=== PATIENT | female | born 1960 | race Caucasian/White ===

== ENCOUNTER 2016-10-09 10:26 | Inpatient (IN) | payer BC ==
[~2016-10-09] VITALS: Ht 175.3 cm; Wt 101.5 kg
[~2016-10-09 10:26] MED LIST: ACYC-114 PO; BACITRACIN 50,000 UNIT ONE; BUPR-86 PO; EPINEPHRINE 1 MG/ML, 1ML ONE; FLUO40CA9 PO; HYDR-3144 PO; KETOROLAC 60 MG/2 ML ONE; LACT1CAP35 PO; LOPE2CAP94 PO; OMEP40CA6 PO; PHEN1CPM PO; ROPIvacaine/PF 0.2%, 20 ML ONE; SODIUM CHLORIDE 0.9% 0 ML ONE; TRANEXAMIC ACID 100 MG/ML, 10ML ONE; morphine SULFATE/PF 1 MG/ML, 10ML ONE
[2016-10-09] MEDS ORDERED: VANCOMYCIN PMX 1GM/200ML 200 ML IV STA (10:47)
[2016-10-09] MEDS ORDERED: LACTATED RINGERS 1,000 ML IV SCH (10:51)
[2016-10-09 11:14] VITALS: BP 131/80
[2016-10-09] MEDS ORDERED: FENTANYL PF 100 MCG/2ML ONE (11:25)
[2016-10-09] MEDS ORDERED: MIDAZOLAM 1 MG/ML, 2ML ONE (11:25)
[2016-10-09] MEDS ORDERED: GLYCOPYRROLATE 0.2MG/1ML ONE (11:51)
[2016-10-09] MEDS ORDERED: ATROPINE 0.4 MG/ML, 1ML ONE (11:51)
[2016-10-09] MEDS ORDERED: ESMOLOL 100 MG/10 ML ONE (11:51)
[2016-10-09] MEDS ORDERED: PROPOFOL 10 MG/ML, 50ML ONE (11:51)
[2016-10-09] MEDS ORDERED: CEFAZOLIN 1,000 MG ONE (11:51)
[2016-10-09] MEDS ORDERED: D5%-0.45% NACL 1,000 ML IV SCH (12:06)
[2016-10-09] MEDS ORDERED: CEFAZOLIN PMX 1GM/50ML 50 ML IVPB SCH (12:30)
[2016-10-09] MEDS ORDERED: OXYcodone/APAP 7.5/325MG TABLET PO PRN (12:30)
[2016-10-09] MEDS ORDERED: DIPHENHYDRAMINE 50 MG CAPSULE PO PRN (12:30)
[2016-10-09] MEDS ORDERED: ONDANSETRON 2MG/ML, 2ML IVPush PRN (12:30)
[2016-10-09] MEDS ORDERED: morphine SULFATE 10 MG/ML, 1ML IVPush PRN (12:30)
[2016-10-09] MEDS ORDERED: VANCOMYCIN PMX 1GM/200ML 200 ML IVPB ONE (12:30)
[2016-10-09] MEDS ORDERED: LORazepam 2 MG/ML, 1ML IVPush PRN (12:30)
[2016-10-09] MEDS ORDERED: ACETAMINOPHEN 325 MG TABLET PO PRN (12:30)
[2016-10-09] MEDS ORDERED: ZOLPIDEM 5MG TABLET PO PRN (12:30)
[2016-10-09] MEDS ORDERED: TRANEXAMIC ACID 100 MG/ML, 10ML IVPB ONE (12:30)
[2016-10-10] MEDS ORDERED: ASPIRIN 325 MG TABLET EC PO SCH (17:00)
[2016-10-10] MEDS ORDERED: DOCUSATE 100 MG CAPSULE PO SCH (21:00)
== END 2016-10-09 16:10 | disposition home or self-care (01) | DRG 554 ==
LOC: ORIP 10:26
PROVIDERS: ADMIT Orthopaedic Surgery; ATTEND Orthopaedic Surgery
DX: M16.11 Unilateral primary osteoarthritis, right hip (principal); K21.9 Gastro-esophageal reflux disease without esophagitis; R00.1 Bradycardia, unspecified; Z53.09 Procedure and treatment not carried out because of other contraindication; F32.9 Major depressive disorder, single episode, unspecified; Z87.891 Personal history of nicotine dependence; Z79.899 Other long term (current) drug therapy
CPT/HCPCS: 36415; 71010; 80047; 83735; 85025; 86850; 86900; 93005; J0171; J0461; J0690; J1885; J2250; J2274; J2704; J2795; J3010; J3370; J3490; J7120

== ENCOUNTER → 2016-11-16 | Outpatient (CLI) | payer BC ==
[~2016-11-16] MED LIST changes: -BACITRACIN 50,000 UNIT ONE; -EPINEPHRINE 1 MG/ML, 1ML ONE; -KETOROLAC 60 MG/2 ML ONE; +OMEG1CAP6 PO; -ROPIvacaine/PF 0.2%, 20 ML ONE; -SODIUM CHLORIDE 0.9% 0 ML ONE; -TRANEXAMIC ACID 100 MG/ML, 10ML ONE; -morphine SULFATE/PF 1 MG/ML, 10ML ONE
[2016-11-16 15:08] LABS: ASPARTATE AMINO TRANSFERASE 32 U/L (15-37); BLOOD UREA NITROGEN 15 mg/dL (7-18)
[2016-11-16 15:14] LABS: PATH.CAST-FLAG NOT PRESENT; SPERM-FLAG NOT PRESENT; SRC-FLAG NOT PRESENT; XTAL-FLAG NOT PRESENT; YLC-FLAG NOT PRESENT
== END | disposition home or self-care (01) ==
LOC: STAR 13:35
PROVIDERS: ATTEND Orthopaedic Surgery
DX: Z01.812 Encounter for preprocedural laboratory examination (principal); M16.11 Unilateral primary osteoarthritis, right hip
CPT/HCPCS: 36415; 80053; 81001; 85025; 87081; 87086

== ENCOUNTER 2016-11-27 07:20 | Inpatient (IN) | payer BC ==
[~2016-11-27] VITALS: Ht 177.8 cm; Wt 100.5 kg
[~2016-11-27 07:20] MED LIST changes: +BACITRACIN 50,000 UNIT ONE; +EPINEPHRINE 1 MG/ML, 1ML ONE; +KETOROLAC 60 MG/2 ML ONE; +ROPIvacaine/PF 0.2%, 20 ML ONE; +TRANEXAMIC ACID 100 MG/ML, 10ML ONE; +morphine SULFATE/PF 1 MG/ML, 10ML ONE
[2016-11-27] MEDS ORDERED: LACTATED RINGERS 1,000 ML IV SCH (07:33)
[2016-11-27] MEDS ORDERED: VANCOMYCIN PMX 1GM/200ML 200 ML IV STA (08:10)
[2016-11-27] MEDS ORDERED: FENTANYL PF 250 MCG/5ML ONE (08:34)
[2016-11-27] MEDS ORDERED: MIDAZOLAM 1 MG/ML, 2ML ONE (08:35)
[2016-11-27] MEDS ORDERED: PHENYLEPHRINE 10 MG/ML ONE (09:12)
[2016-11-27] MEDS ORDERED: DEXAMETHASONE 4 MG/ML, 1ML ONE (09:12)
[2016-11-27] MEDS ORDERED: ONDANSETRON 2MG/ML, 2ML ONE (09:12)
[2016-11-27] MEDS ORDERED: ROCURONIUM 10 MG/ML ONE (09:12)
[2016-11-27] MEDS ORDERED: PROPOFOL 10 MG/ML, 20ML ONE (09:12)
[2016-11-27] MEDS ORDERED: NEOSTIGMINE 1 MG/ML, 10ML ONE (09:12)
[2016-11-27] MEDS ORDERED: GLYCOPYRROLATE 0.2MG/1ML ONE (09:12)
[2016-11-27] MEDS ORDERED: SUCCINYLCHOLINE 20 MG/ML, 10ML ONE (09:12)
[2016-11-27] MEDS ORDERED: CEFAZOLIN 1,000 MG ONE (09:12)
[2016-11-27] MEDS ORDERED: TRANEXAMIC ACID 100 MG/ML, 10ML IVPB ONE (09:30)
[2016-11-27] MEDS ORDERED: ACETAMINOPHEN 325 MG TABLET PO PRN ×2 (09:30→11:00)
[2016-11-27] MEDS ORDERED: ONDANSETRON 2MG/ML, 2ML IVPush PRN ×2 (09:30→11:00)
[2016-11-27] MEDS ORDERED: ZOLPIDEM 5MG TABLET PO PRN (09:30)
[2016-11-27] MEDS ORDERED: LORazepam 2 MG/ML, 1ML IVPush PRN (09:30)
[2016-11-27] MEDS ORDERED: VANCOMYCIN PMX 1GM/200ML 200 ML IVPB ONE (09:30)
[2016-11-27] MEDS ORDERED: DIPHENHYDRAMINE 25 MG CAPSULE PO PRN (09:30)
[2016-11-27] MEDS ORDERED: CEFAZOLIN PMX 1GM/50ML 50 ML IVPB SCH (09:30)
[2016-11-27] MEDS ORDERED: SCOPOLAMINE PATCH, 1.5MG PATCH.TD72 TD ONE ×2 (09:37→10:59)
[2016-11-27] MEDS ORDERED: KETOROLAC 60 MG/2 ML INFIL ONE (10:56)
[2016-11-27] MEDS ORDERED: LABETALOL 5MG/ML, 20ML IV PRN (11:00)
[2016-11-27] MEDS ORDERED: EPHEDRINE 50 MG/ML, 1ML IVPush PRN (11:00)
[2016-11-27] MEDS ORDERED: hydrALAzine 20 MG/ML, 1ML IV PRN (11:00)
[2016-11-27] MEDS ORDERED: PROMETHAZINE 25 MG/ML, 1ML IV PRN (11:00)
[2016-11-27] MEDS ORDERED: OXYcodone 5 MG/5 ML ORAL.SOL UDC PO PRN (11:00)
[2016-11-27] MEDS ORDERED: MIDAZOLAM 1 MG/ML, 2ML IV PRN (11:00)
[2016-11-27] MEDS ORDERED: MEPERIDINE/PF 25MG/0.5ML IVPush PRN (11:00)
[2016-11-27] MEDS ORDERED: HYDROcodone/APAP 7.5-325MG/15ML UDC PO PRN (11:00)
[2016-11-27] MEDS: HYDROmorphone 1 MG/ML, 1ML IV PRN ×4 (11:55→12:15)
[2016-11-27] MEDS ORDERED: HYDROmorphone 2 MG/ML, 1ML ONE (11:57)
[2016-11-27] MEDS ORDERED: FENTANYL PF 100 MCG/2ML ONE (11:57)
[2016-11-27] MEDS ORDERED: ACETAMINOPHEN 650 MG/20.3 ML UDC ONE (11:57)
[2016-11-27] MEDS ORDERED: OXYcodone 5 MG/5 ML ORAL.SOL UDC ONE (11:58)
[2016-11-27] MEDS: FENTANYL PF 100 MCG/2ML IV PRN ×2 (12:01→12:08)
[2016-11-27] MEDS ORDERED: TRANEXAMIC ACID 1,000 MG in SODIUM CHLORIDE 0.9% 100 ML IV ONE (12:30)
[2016-11-27] MEDS: D5%-0.45% NACL 1,000 ML IV SCH ×3 (14:29→19:29)
[2016-11-27] MEDS: OXYcodone/APAP 7.5/325MG TABLET PO PRN ×3 (14:34→23:19)
[2016-11-27] MEDS: CEFAZOLIN PMX 1GM/50ML 50 ML IVPB SCH (17:34)
[2016-11-27 18:54] VITALS: BP 119/78
[2016-11-27] MEDS: morphine SULFATE 10 MG/ML, 1ML IVPush PRN (20:37)
[2016-11-28] MEDS: D5%-0.45% NACL 1,000 ML IV SCH ×3 (00:29→10:29)
[2016-11-28] MEDS: CEFAZOLIN PMX 1GM/50ML 50 ML IVPB SCH ×2 (01:30→09:22)
[2016-11-28] MEDS: OXYcodone/APAP 7.5/325MG TABLET PO PRN ×3 (03:15→12:09)
[2016-11-28] MEDS: morphine SULFATE 10 MG/ML, 1ML IVPush PRN (05:33)
[2016-11-28 06:44] VITALS: BP 117/74
[2016-11-28 06:45] VITALS: BP 117/74
[2016-11-28] MEDS ORDERED: OMEPRAZOLE 20 MG CAPSULE.DR PO SCH (07:30)
[2016-11-28] MEDS ORDERED: FLUOXETINE 20 MG CAPSULE PO SCH (09:00)
[2016-11-28] MEDS ORDERED: OMEGA-3/FISH OIL CAPSULE PO SCH (09:00)
[2016-11-28] MEDS ORDERED: VANCOMYCIN PMX 1GM/200ML 200 ML IV ONE (09:00)
[2016-11-28] MEDS ORDERED: LACTOBACILLUS CHEW TABLET PO SCH (09:00)
[2016-11-28] MEDS ORDERED: ACYCLOVIR 400 MG TABLET PO SCH (09:00)
[2016-11-28] MEDS ORDERED: LOPERAMIDE 2 MG CAPSULE PO SCH (09:00)
[2016-11-28] MEDS ORDERED: BUPROPION SR 150 MG TABLET PO SCH (09:00)
[2016-11-28 13:00] VITALS: BP 111/62
[2016-11-28] MEDS ORDERED: OXYC-223 PO (13:43)
[2016-11-28] MEDS ORDERED: ASPIRIN 325 MG TABLET EC PO SCH (17:00)
[2016-11-28] MEDS ORDERED: DOCUSATE 100 MG CAPSULE PO SCH (21:00)
== END 2016-11-28 14:02 | disposition home or self-care (01) | DRG 470 ==
LOC: ORIP 07:20 → 4NOR 13:02 → DCLOUNGE 11-28 13:22
PROVIDERS: ADMIT Orthopaedic Surgery; ATTEND Orthopaedic Surgery
PROC: 0SR902Z Replacement of Right Hip Joint with Metal on Polyethylene Synthetic Substitute, Open Approach (ICD-10-PCS; principal; 2016-11-27 10:00)
DX: M16.11 Unilateral primary osteoarthritis, right hip (principal); E66.9 Obesity, unspecified; Z68.31 Body mass index [BMI] 31.0-31.9, adult; F32.9 Major depressive disorder, single episode, unspecified; K21.9 Gastro-esophageal reflux disease without esophagitis; Z87.891 Personal history of nicotine dependence
CPT/HCPCS: 36415; 85018; 86850; 86900; C1713; J0171; J0690; J1100; J1170; J1885; J2250; J2274; J2405; J2704; J2710; J2795; J3010; J3370; J3490; C1776; J0330; J2270; J2370; J7120

== ENCOUNTER 2016-12-20 08:20 | Inpatient (IN) | payer BC ==
[~2016-12-20] VITALS: Ht 177.8 cm; Wt 103.0 kg
[~2016-12-20 08:20] MED LIST changes: -BACITRACIN 50,000 UNIT ONE; -EPINEPHRINE 1 MG/ML, 1ML ONE; -KETOROLAC 60 MG/2 ML ONE; +OXYC-223 PO; -ROPIvacaine/PF 0.2%, 20 ML ONE; -TRANEXAMIC ACID 100 MG/ML, 10ML ONE; -morphine SULFATE/PF 1 MG/ML, 10ML ONE
[2016-12-20] MEDS ORDERED: LACTATED RINGERS 1,000 ML IV SCH (09:14)
[2016-12-20 09:40] VITALS: BP 136/83
[2016-12-20] MEDS ORDERED: SCOPOLAMINE PATCH, 1.5MG PATCH.TD72 TD ONE ×2 (09:58→10:00)
[2016-12-20] MEDS ORDERED: TRANEXAMIC ACID 100 MG/ML, 10ML ONE ×2 (10:40→10:41)
[2016-12-20] MEDS ORDERED: ROPIvacaine/PF 0.2%, 20 ML ONE (10:40)
[2016-12-20] MEDS ORDERED: KETOROLAC 60 MG/2 ML ONE (10:41)
[2016-12-20] MEDS ORDERED: EPINEPHRINE 1 MG/ML, 1ML ONE (10:41)
[2016-12-20] MEDS ORDERED: MIDAZOLAM 1 MG/ML, 2ML ONE ×2 (10:58→13:34)
[2016-12-20] MEDS ORDERED: FENTANYL PF 250 MCG/5ML ONE (10:58)
[2016-12-20] MEDS ORDERED: KETAMINE 10 MG/ML, 20ML ONE (10:58)
[2016-12-20] MEDS ORDERED: CEFAZOLIN 1,000 MG ONE (11:13)
[2016-12-20] MEDS ORDERED: SUCCINYLCHOLINE 20 MG/ML, 10ML ONE (11:13)
[2016-12-20] MEDS ORDERED: PROPOFOL 10 MG/ML, 20ML ONE (11:13)
[2016-12-20] MEDS ORDERED: PHENYLEPHRINE 10 MG/ML ONE (11:13)
[2016-12-20] MEDS ORDERED: ONDANSETRON 2MG/ML, 2ML ONE (11:13)
[2016-12-20] MEDS ORDERED: DEXAMETHASONE 4 MG/ML, 1ML ONE (11:13)
[2016-12-20] MEDS ORDERED: ROCURONIUM 10 MG/ML ONE (11:13)
[2016-12-20] MEDS ORDERED: EPHEDRINE 50 MG/ML, 1ML ONE (11:13)
[2016-12-20] MEDS ORDERED: GLYCOPYRROLATE 0.2MG/1ML ONE (11:13)
[2016-12-20] MEDS ORDERED: NEOSTIGMINE 1 MG/ML, 10ML ONE (11:13)
[2016-12-20] MEDS ORDERED: VANCOMYCIN 1,000 MG ONE (11:33)
[2016-12-20] MEDS ORDERED: hydrALAzine 20 MG/ML, 1ML IV PRN (12:00)
[2016-12-20] MEDS ORDERED: MIDAZOLAM 1 MG/ML, 2ML IV PRN (12:00)
[2016-12-20] MEDS ORDERED: PROMETHAZINE 25 MG/ML, 1ML IV PRN (12:00)
[2016-12-20] MEDS ORDERED: MEPERIDINE/PF 25MG/0.5ML IVPush PRN (12:00)
[2016-12-20] MEDS ORDERED: ALBUTEROL/IPRATROPIUM 2.5MG/0.5MG, 3 ML NPPB PRN (12:00)
[2016-12-20] MEDS ORDERED: ONDANSETRON 2MG/ML, 2ML IVPush PRN (12:00)
[2016-12-20] MEDS ORDERED: ACETAMINOPHEN 325 MG TABLET PO PRN (12:00)
[2016-12-20] MEDS ORDERED: LABETALOL 5MG/ML, 20ML IV PRN (12:00)
[2016-12-20] MEDS ORDERED: OXYcodone 5 MG/5 ML ORAL.SOL UDC PO PRN (12:00)
[2016-12-20] MEDS ORDERED: HYDROmorphone 1 MG/ML, 1ML ONE (12:56)
[2016-12-20] MEDS ORDERED: HYDROmorphone 2 MG/ML, 1ML ONE (13:29)
[2016-12-20] MEDS ORDERED: OXYcodone 5 MG/5 ML ORAL.SOL UDC ONE (13:29)
[2016-12-20] MEDS ORDERED: FENTANYL PF 100 MCG/2ML ONE (13:29)
[2016-12-20] MEDS ORDERED: BISACODYL 10 MG SUPP PR PRN (13:30)
[2016-12-20] MEDS ORDERED: MAGNESIUM HYDROXIDE 8%, 30ML UDC PO PRN (13:30)
[2016-12-20] MEDS ORDERED: ONDANSETRON 4 MG TABLET PO PRN (13:30)
[2016-12-20] MEDS ORDERED: SENNA/DOCUSATE TABLET PO PRN (13:30)
[2016-12-20] MEDS ORDERED: HYDROcodone/APAP 5/325 TABLET PO PRN (13:30)
[2016-12-20] MEDS ORDERED: ALUMINUM/MAG/SIMETHICONE 30 ML UDC PO PRN (13:30)
[2016-12-20] MEDS ORDERED: DIPHENHYDRAMINE 50 MG CAPSULE PO PRN (13:30)
[2016-12-20] MEDS: FENTANYL PF 100 MCG/2ML IV PRN ×2 (13:31→13:38)
[2016-12-20] MEDS: HYDROmorphone 1 MG/ML, 1ML IV PRN ×3 (13:48→14:42)
[2016-12-20 14:37] LABS: HIV 1&2 ANTIBODY SCREEN Nonreactive (Nonreactive); HIV-1 p24 ANTIGEN Nonreactive (Nonreactive)
[2016-12-20] MEDS: morphine SULFATE 10 MG/ML, 1ML IV PRN ×2 (16:19→17:18)
[2016-12-20] MEDS: D5%-0.45NACL+KCL 20MEQ 1,000 ML IV SCH ×2 (16:20→21:15)
[2016-12-20] MEDS: OXYcodone IR 5MG TABLET PO PRN ×2 (17:18→21:07)
[2016-12-20] MEDS: ASPIRIN 81 MG TABLET EC PO SCH (18:15)
[2016-12-20] MEDS: CEFAZOLIN PMX 2GM/50ML 50 ML IVPB SCH (18:15)
[2016-12-20 19:00] VITALS: BP 97/58
[2016-12-20] MEDS: BUPROPION 75 MG TABLET PO SCH (20:56)
[2016-12-20] MEDS: DOCUSATE 100 MG CAPSULE PO SCH (20:56)
[2016-12-21 00:05] VITALS: BP 97/67
[2016-12-21] MEDS: CEFAZOLIN PMX 2GM/50ML 50 ML IVPB SCH (01:59)
[2016-12-21] MEDS: OXYcodone IR 5MG TABLET PO PRN ×3 (01:59→10:51)
[2016-12-21] MEDS: ACETAMINOPHEN 650 MG/20.3 ML UDC PO PRN ×3 (02:05→10:51)
[2016-12-21 04:06] VITALS: BP 103/59
[2016-12-21] MEDS: ASPIRIN 81 MG TABLET EC PO SCH (06:20)
[2016-12-21] MEDS ORDERED: OMEPRAZOLE 20 MG CAPSULE.DR PO SCH (07:30)
[2016-12-21 07:52] VITALS: BP 108/68
[2016-12-21] MEDS: D5%-0.45NACL+KCL 20MEQ 1,000 ML IV SCH (08:00)
[2016-12-21] MEDS: DOCUSATE 100 MG CAPSULE PO SCH (08:39)
[2016-12-21] MEDS: BUPROPION 75 MG TABLET PO SCH (08:40)
[2016-12-21] MEDS ORDERED: ACYCLOVIR 400 MG TABLET PO SCH (09:00)
[2016-12-21] MEDS ORDERED: BUPROPION SR 150 MG TABLET PO SCH (09:00)
[2016-12-21] MEDS ORDERED: FLUOXETINE 20 MG CAPSULE PO SCH (09:00)
[2016-12-21] MEDS ORDERED: OXYC5CAP4 PO (12:00)
[2016-12-21] MEDS ORDERED: TRAM50TA2 PO (12:01)
[2016-12-21] MEDS ORDERED: ASPI-496 PO (12:02)
[2016-12-21] MEDS ORDERED: KETOROLAC 30 MG/1 ML IV SCH (16:00)
== END 2016-12-21 12:30 | disposition home or self-care (01) | DRG 468 ==
LOC: ORIP 08:20 → 4NOR 15:48 → DCLOUNGE 12-21 11:13
PROVIDERS: ADMIT Orthopaedic Surgery Adult Reconstructive Orthopaedic Surgery; ATTEND Orthopaedic Surgery Adult Reconstructive Orthopaedic Surgery
PROC: 0SP909Z Removal of Liner from Right Hip Joint, Open Approach (ICD-10-PCS; 2016-12-20)
PROC: 0SU909Z Supplement Right Hip Joint with Liner, Open Approach (ICD-10-PCS; 2016-12-20)
PROC: 0SP90JZ Removal of Synthetic Substitute from Right Hip Joint, Open Approach (ICD-10-PCS; 2016-12-20)
PROC: 0SR901Z Replacement of Right Hip Joint with Metal Synthetic Substitute, Open Approach (ICD-10-PCS; principal; 2016-12-20 11:00)
DX: M25.351 Other instability, right hip (principal); K21.9 Gastro-esophageal reflux disease without esophagitis; F32.9 Major depressive disorder, single episode, unspecified; M19.90 Unspecified osteoarthritis, unspecified site; Z79.899 Other long term (current) drug therapy; Z87.891 Personal history of nicotine dependence
CPT/HCPCS: 36415; 85014; 85018; 85651; 86140; 86703; 86850; 86900; 87899; C1713; J0171; J0690; J1100; J1170; J1885; J2250; J2405; J2704; J2710; J2795; J3010; J3370; J3490; C1776; G0435; J0330; J2270; J2370; J3480; J7120

== ENCOUNTER 2016-12-24 22:58 | Emergency (ER) | payer BC ==
[~2016-12-24] VITALS: Ht 177.8 cm; Wt 100.0 kg
[~2016-12-24 22:58] MED LIST changes: +ASPI-496 PO; +OXYC5CAP4 PO; +TRAM50TA2 PO
[2016-12-24] MEDS ORDERED: ONDANSETRON 2MG/ML, 2ML ONE (23:55)
[2016-12-24] MEDS ORDERED: MAALOX/HYOSCYAMINE/LIDOCAINE 45 ML BOTTLE ONE (23:55)
[2016-12-24] MEDS ORDERED: FAMOTIDINE 20 MG/2 ML ONE (23:55)
[2016-12-25] LABS: BLOOD UREA NITROGEN 11 mg/dL (7-18)
[2016-12-25] MEDS ORDERED: ONDANSETRON 2MG/ML, 2ML IVPush ONE
[2016-12-25] MEDS ORDERED: SODIUM CHLORIDE FLUSH 10ML SYR IVF ONE
[2016-12-25] MEDS ORDERED: FAMOTIDINE 20 MG/2 ML IVP ONE
[2016-12-25] MEDS ORDERED: SODIUM CHLORIDE 0.9% 1,000ML IVBOLUS ONE
[2016-12-25] MEDS ORDERED: MAALOX/HYOSCYAMINE/LIDOCAINE 45 ML BOTTLE PO ONE
[2016-12-25 03:12] VITALS: BP 129/70
[2016-12-25] MEDS ORDERED: OMNIPAQUE 350 MG/ML, 100ML BOTTLE ONE (05:04)
== END 2016-12-25 03:16 | disposition home or self-care (01) ==
LOC: ED 23:59
DX: K52.9 Noninfective gastroenteritis and colitis, unspecified (principal); K21.9 Gastro-esophageal reflux disease without esophagitis; K76.0 Fatty (change of) liver, not elsewhere classified; N83.209 Unspecified ovarian cyst, unspecified side; Z87.891 Personal history of nicotine dependence; Z90.710 Acquired absence of both cervix and uterus
CPT/HCPCS: 36415; 74020; 74177; 80048; 80076; 82040; 83690; 85025; 96361; 96374; 96375; 99285; J2405; J7030; Q9967; S0028